=== PATIENT | female | born 1975 | race Caucasian/White ===

== ENCOUNTER 2023-02-14 09:00 | Day surgery (SDC) | payer OTHER ==
[~2023-02-14 09:00] MED LIST: OMEPRAZOLE20 MG PO
[2023-02-14 09:33] VITALS: BP 134/72
[2023-02-14 11:00] VITALS: BP 126/63
--- NOTE | 2023-02-14 11:00 | NUR ---
REPORT RECEIVED FROM SARAH HORVATH. PT HAS [address], C/D/I W/BACITRACIN ON INCISION SITE. PT GETTING DRESSED AT THIS TIME. CALL LIGHT WITHIN REACH.
--- NOTE | 2023-02-14 11:17 | NUR ---
IN PT ROOM FOR DISCHARGE EDUCATION, PT STATES VERBAL UNDERSTANDING AND NO FURTHER QUESTIONS OR NEEDS AT THIS TIME. ALL BELONGINGS IN PT POSSESSION AT THIS TIME. PT AMBULATES SELF OFF OF UNIT D/T NO ANESTHESIA USE, ONLY LOCAL ANESTHETIC.
--- NOTE | 2023-02-14 13:05 | OR ---
[facility] [address] [place], [place] [address] Signed DATE OF OPERATION: 02/14/2023 SURGEON: Kumar Tovar MD PREOPERATIVE DIAGNOSIS: Right facial lesion. POSTOPERATIVE DIAGNOSIS: Right facial lesion. PROCEDURE: Excision of right facial lesion. ANESTHESIA: Local. PREOPERATIVE HISTORY: Fernanda is a 47-year-old lady with a pigmented lesion on the right cheek. This has been present for many months, slightly getting larger and darker. She is taken to the operating for the above-mentioned procedures. OPERATIVE PROCEDURE AND FINDINGS: After informed consent, the patient was taken to the operating room, left in her same-day bed semi-sitting. Monitoring was performed. The right face was sterilely prepped and draped. 2% plain lidocaine used to inject the field type block on the right cheek. The lesion in question was over the mandible midportion about a cm in greatest diameter, raised, pigmented. The excision was in a transverse direction in a skin crease, total of about 3 cm. After prep and drape and local anesthetic, the lesion was excised with a mm or 2 margins elliptical shape. Hemostasis was obtained with needle point cautery. The wound edges were elevated for half a cm or so to allow for tension-free closure. The wound was then closed with 4-0 interrupted Vicryl subcu and 5-0 running nylon to the skin. Skin was cleansed. Neosporin ointment was applied. The patient was then transported back to same day in good condition. No complications. BLOOD LOSS: Minimal. SPECIMEN: To pathology. Electronically Signed By: KUMAR TOVAR MD 02/14/23 1305 PATIENT NAME: FERNANDA SANTACRUZ OPERATIVE REPORT DATE OF : 77 REPORT #: [id number] PHYSICIAN: KUMAR TOVAR MD PCP: NO PRIMARY CARE PHYSICIAN REPORT IS CONFIDENTIAL AND NOT TO BE RELEASED WITHOUT AUTHORIZATION [address] [address] Signed DRAINS: No drains. Kumar Tovar MD GC/GT /[id number] Copies: ~ Electronically Signed By: KUMAR TOVAR MD 02/14/23 1305 PATIENT NAME: FERNANDA SANTACRUZ OPERATIVE REPORT DATE OF : 77 REPORT #: [id number] PHYSICIAN: KUMAR TOVAR MD PCP: NO PRIMARY CARE PHYSICIAN REPORT IS CONFIDENTIAL AND NOT TO BE RELEASED WITHOUT AUTHORIZATION
--- NOTE | 2023-02-17 17:18 | PATH ---
[facility] [address] [place], [place] [address] Signed SPECIMEN(S): A RIGHT CHEEK SPECIMEN SOURCE: A. RIGHT CHEEK CLINICAL HISTORY: Right cheek lesion. Pigmented nevus. FINAL PATHOLOGIC DIAGNOSIS: Right cheek: - Compound melanocytic nevus, free of the peripheral and deep surgical margins on these sections. JVR:dks MICROSCOPIC EXAMINATION: Histologic sections of all submitted blocks are examined by light microscopy. These findings, together with the gross examination, support the pathologic diagnosis. A Melan-A immunohistochemical stain is performed with appropriate controls on block A1 and highlights the intradermal and junctional melanocytes, supporting the diagnosis. JVR:dks GROSS DESCRIPTION: The specimen, labeled and designated "Dolores, right cheek," is received in formalin and consists of unoriented skin ellipse that measures 2.2 x 0.8 x 0.3 cm. Skin surface shows pink-dumont nodule that measures 0.7 cm in diameter. The nodule is 0.1 cm from the nearest margin. Specimen is inked and serially sectioned. Entirely submitted in (A1). JS (under the direct supervision of a pathologist) The Gross Description was prepared using a voice recognition system. The report was reviewed for accuracy; however, sound-alike word errors, addition and/or deletions may occur. If there is any question about this report, please contact Client Services. ADDITIONAL NOTES: Immunohistochemical and/or in situ hybridization studies were performed on this case with the appropriate positive controls that react as expected. This test was developed and its performance characteristics determined by [facility]. It has not been cleared or approved by the U.S. Food and Drug Administration. The FDA has determined that PATIENT NAME: JENNIFER SANTACRUZ PATHOLOGY DATE OF : 77 REPORT #: [id number] PHYSICIAN: MARYANN PATHOLOGY PCP: NO PRIMARY CARE PHYSICIAN REPORT IS CONFIDENTIAL AND NOT TO BE RELEASED WITHOUT AUTHORIZATION [facility] [address] [place], [place] [address] Signed such clearance or approval is not necessary. This test is used for clinical purposes. It should not be regarded as investigational or for research. [facility] is certified under the Clinical Laboratory Improvement Amendments of 1988 (CLIA) as qualified to perform high complexity clinical laboratory testing. This assay has not been validated for specimens that have been decalcified. PERFORMING LABORATORY: Technical component was performed by [facility], [address] [place] [id number] (CLIA# [id number]). Professional interpretation was performed by [facility] - [address] [address] (CLIA#: [id number]). Diagnostician: Elie Rodriguez MD Pathologist Electronically Signed 02/17/2023 Copies: ~ PATIENT NAME: JENNIFER SANTACRUZ PATHOLOGY DATE OF : 77 REPORT #: [id number] PHYSICIAN: MARYANN VERA PCP: NO PRIMARY CARE PHYSICIAN REPORT IS CONFIDENTIAL AND NOT TO BE RELEASED WITHOUT AUTHORIZATION
== END 2023-02-14 17:00 | disposition home or self-care (01) ==
LOC: OPS 09:00 → DS 09:10 → OPS 11:00
PROVIDERS: ATTEND Otolaryngology
PROC: 0HB1XZZ Excision of Face Skin, External Approach (ICD-10-PCS; principal; 2023-02-14 11:00)
DX: D22.39 Melanocytic nevi of other parts of face (principal); Z88.5 Allergy status to narcotic agent; Z88.8 Allergy status to other drugs, medicaments and biological substances
CPT/HCPCS: J1100; J1885; J2250; J2405; J2704; J2765; J3010; J7121